=== PATIENT | male | born 1960 | race Caucasian/White ===

== ENCOUNTER 2021-12-25 15:33 | Emergency (ER) | payer OTHER ==
[~2021-12-25] VITALS: Ht 188 cm; Wt 100.0 kg
[2021-12-25] MEDS ORDERED: OMEP10CA5 PO (15:48)
[2021-12-25] MEDS ORDERED: GLIP5TAB12 PO (15:48)
[2021-12-25] MEDS ORDERED: GABA-529 PO (15:48)
[2021-12-25] MEDS ORDERED: CARV3.1242 PO (15:48)
[2021-12-25] MEDS ORDERED: METF-416 PO (15:48)
[2021-12-25] MEDS ORDERED: ONDANSETRON HCL 4MG/2ML INJ IV STA (16:19)
[2021-12-25] MEDS ORDERED: PANTOPRAZOLE SODIUM 40 MG/VIAL IV STA (16:19)
[2021-12-25] MEDS ORDERED: MORPHINE SULFATE 4 MG/ML CPJ (NOT FOR IM USE) IV STA (16:19)
[2021-12-25] MEDS ORDERED: PANTOPRAZOLE 80 MG in SODIUM CHLORIDE 0.9% 80 ML IV ONE (16:30)
[2021-12-25] MEDS ORDERED: SODIUM CHLORIDE 0.9% 1,000 ML IV ONE (16:30)
[2021-12-25 17:16] LABS: BASOPHILS % 0.4 % (0.0-2.0); EOSINOPHILS % 1.7 % (0.0-5.0); HEMATOCRIT. 40.5 % (42.0-52.0); HEMOGLOBIN. 13.8 g/dL (14.0-18.0); LYMPHOCYTES % 16.8 % (20.0-50.0); MEAN CORPUSCULAR HEMOGLOBIN 29.9 pg (28.0-32.0); MEAN CORPUSCULAR VOLUME 87.7 fL (80.0-94.0); MEAN PLATELET VOLUME 8.4 fl (7.4-10.4); MONOCYTES % 6.5 % (2.0-8.0); NEUTROPHILS % 74.6 % (40.0-76.0); PLATELET 216 x1000/uL (130-400); RED BLOOD CELL COUNT 4.62 mill/uL (4.7-6.1); RED CELL DISTRIBUTION WIDTH 15.8 % (11.6-14.6)
[2021-12-25 17:23] LABS: CHLORIDE 99 mEq/L (98-107)
[2021-12-25 17:26] LABS: PROTHROMBIN TIME 10.3 sec (9.6-11.0)
[2021-12-25 17:34] LABS: BETA HYDROXYBUTYRATE 0.1 mMol/L (0.0-0.3)
[2021-12-25] MEDS ORDERED: INSULIN REGULAR (HUMULIN R) UD 100 UNITS/ML SYR SUBCUT ONE (20:15)
[2021-12-25] MEDS ORDERED: INSULIN REGULAR (HUMULIN R) 300UNITS/3ML VIAL SUBCUT NR (20:30)
[2021-12-25] MEDS ORDERED: INSULIN REGULAR (HUMULIN R) 300UNITS/3ML VIAL SUBCUT ONE (20:30)
[2021-12-25 23:00] VITALS: BP 135/79
== END 2021-12-25 23:15 | disposition left against medical advice (07) ==
LOC: ER 15:33 → ENRESERV 12-26 09:39 → CMPBEDREQ 12-26 22:27
DX: R10.84 Generalized abdominal pain (principal); E11.65 Type 2 diabetes mellitus with hyperglycemia; K92.2 Gastrointestinal hemorrhage, unspecified; I11.9 Hypertensive heart disease without heart failure; M19.90 Unspecified osteoarthritis, unspecified site; E78.00 Pure hypercholesterolemia, unspecified; I48.91 Unspecified atrial fibrillation; Z87.11 Personal history of peptic ulcer disease; Z79.84 Long term (current) use of oral hypoglycemic drugs; Z96.649 Presence of unspecified artificial hip joint; Z79.01 Long term (current) use of anticoagulants; Z88.3 Allergy status to other anti-infective agents
CPT/HCPCS: 36415; 71045; 74176; 80053; 82010; 82962; 83690; 83880; 84484; 85025; 85610; 86850; 86900; 86901; 93005; 96361; 96365; 96372; 96375; 99291; C9113; J1815; J2270; J2405; J7030; J7050